=== PATIENT | male | born 1985 | race Caucasian/White ===

== ENCOUNTER 2017-02-16 10:49 | Emergency (ER) | payer BC, OTHER ==
[~2017-02-16] VITALS: Wt 105.7 kg
[2017-02-16] MEDS ORDERED: MUPI22OI2 TOP (12:00)
--- NOTE | 2017-02-16 12:02 | ERD ---
ER Documentation Chief Complaint Chief Complaint PAIN ON LEFT GROIN, ONSET THIS AM, NO INJURY HPI Patient is a 32-year-old male who has penile pain that began this morning. He states last night he had intercourse with his girlfriend who is on his her. And then this morning he noticed there is a small abrasion to the underside of his penis. He has had no dysuria hematuria. No discharge. No nausea vomiting. No fever. ROS All systems reviewed and are negative except as per history of present illness. Medications Home Meds Active Scripts Mupirocin* (Bactroban*) 2% -22 Gram Oint...g., 1 APPLIC TOP BID for 7 Days, EA Prov:SERENITY MAYO PA-C 02/16/17 Allergies Allergies: Coded Allergies: No Known Allergy (Unverified , 07/02/12) PMhx/Soc History of Surgery: No Anesthesia Reaction: No Hx Neurological Disorder: No Hx Respiratory Disorders: No Hx Cardiac Disorders: No Hx Psychiatric Problems: No Hx Miscellaneous Medical Probl: No Hx Alcohol Use: No Hx Substance Use: No Hx Tobacco Use: No FmHx Family History: No diabetes Physical Exam Vitals Vital Signs Date Time Temp Pulse Resp B/P Pulse Ox O2 Delivery O2 Flow Rate FiO2 02/16/17 10:50 97.2 82 17 143/82 99 Physical Exam Const: [] Head: Atraumatic Eyes: Normal Conjunctiva ENT: Normal External Ears, Nose and Mouth. Neck: Full range of motion..~ No meningismus. Resp: Clear to auscultation bilaterally Cardio: Regular rate and rhythm, no murmurs Abd: Soft, non tender, non distended. gu: Small abrasion to the underside of the penis, no bleeding or drainage no surrounding erythema Procedures/MDM Patient has penile abrasion. Rest of the examination is normal he is well- appearing in no distress. He was given a prescription for antibiotic ointment to apply. Patient counseled regarding my diagnostic impression and care plan. Prior to discharge all questions answered. Pt agrees with treatment plan and understands strict return precautions. Pt is instructed to follow up with primary care provider within 24-48 hours. Precautionary instructions provided including instructions to return to the ER if not improving or for any worsening or changing symptoms or concerns. Departure Diagnosis: Primary Impression: Abrasion Condition: Stable Patient Instructions: Abrasion Additional Instructions: Call your primary care doctor MADAIORROW for an appointment during the next 1-2 days.See the doctor sooner or return here if your condition worsens before your appointment time. SERENITY MAYO PA-C Feb 16, 2017 12:02
== END 2017-02-16 12:23 | disposition home or self-care (01) ==
LOC: FTE 10:49
DX: S30.812A Abrasion of penis, initial encounter (principal); X58.XXXA Exposure to other specified factors, initial encounter; Y92.9 Unspecified place or not applicable
CPT/HCPCS: 99283